=== PATIENT | male | born 1975 | race African-American/Black ===

== ENCOUNTER 2017-07-05 19:47 | Observation (INO) | payer OTHER ==
[~2017-07-05] VITALS: Ht 195.6 cm; Wt 90.2 kg
[2017-07-05 21:01] LABS: HEMATOCRIT 40.5 % (38.0-50.0); MCH 31.1 PG (29.0-34.0); MCHC 34.6 G/DL (30.0-36.0); PLATELET COUNT 184 K/uL (156-360); RBC DIS.WIDTH-CV 12.9 % (11.8-14.6); RBC DIS.WIDTH-SD 42.5 % (39-53)
[2017-07-05 21:11] LABS: CHLORIDE 104 mEq/L (99-109); POTASSIUM 3.6 mEq/L (3.7-5.4); SODIUM 140 mEq/L (136-147)
[2017-07-05 21:12] LABS: GLUCOSE 84 mg/dL (70-99)
[2017-07-05 21:17] LABS: GFR ESTIMATE (CALCULATED) > 59 mL/min/ (58.99-99999); UREA NITROGEN (BUN) 14 mg/dL (9-23)
[2017-07-05 21:32] LABS: TROP-I INTERPRETATION NEGATIVE; TROPONIN-I < 0.01 ng/mL (0.0-0.30)
[2017-07-05] MEDS ORDERED: BRILINTA PO (21:38)
[2017-07-05] MEDS ORDERED: ASPIR-LOW81 MG PO (21:39)
[2017-07-05] MEDS ORDERED: CHOLESTEROL TAB PO (21:40)
[2017-07-05] MEDS ORDERED: LISINOPRIL10 MG PO (23:53)
[2017-07-05] MEDS ORDERED: CARVEDILOL6.25 MG PO (23:53)
[2017-07-06 03:05] LABS: ALBUMIN 3.7 g/dL (3.2-4.8)
[2017-07-06 03:06] LABS: D-DIMER ELISA < 150.00 ng/mLDDU (<230)
[2017-07-06 03:08] LABS: TOTAL PROTEIN 6.9 g/dL (6.4-8.3)
[2017-07-06 03:10] LABS: TOTAL BILIRUBIN 0.4 mg/dL (0.0-1.0)
[2017-07-06 03:11] LABS: ALKALINE PHOSPHATASE 49 IU/L (3-129)
[2017-07-06 03:14] LABS: ALT (GPT) 35 IU/L (3-49); AST (GOT) 21 IU/L (2-34); DIRECT BILIRUBIN 0.2 mg/dL (0.0-0.3)
[2017-07-06 03:15] LABS: LIPASE 15 U/L (1.0-51.0)
[2017-07-06 03:16] LABS: TROP-I INTERPRETATION NEGATIVE; TROPONIN-I < 0.01 ng/mL (0.0-0.30)
[2017-07-06 03:53] LABS: HDL CHOLESTEROL 27 MG/DL (Desirable>=40); LDL CHOLESTEROL 139 mg/dL (Desirable<100); NON-HDL CHOLESTEROL 152 mg/dL (Desirable<160); TOTAL CHOLESTEROL 179 mg/dL (Desirable<200); TRIGLYCERIDES 65 MG/DL (Normal: <150)
[2017-07-06 09:58] LABS: TROP-I INTERPRETATION NEGATIVE; TROPONIN-I < 0.01 ng/mL (0.0-0.30)
[2017-07-06 12:01] VITALS: BP 164/102
[2017-07-06] MEDS ORDERED: ASPIR-LOW81 MG PO (15:19)
[2017-07-06] MEDS ORDERED: LISINOPRIL10 MG PO (15:19)
[2017-07-06] MEDS ORDERED: CARVEDILOL6.25 MG PO (15:20)
[2017-07-06] MEDS ORDERED: BRILINTA90 MG PO (15:29)
[2017-07-06 15:39] VITALS: BP 143/93
== END 2017-07-06 16:34 | disposition home or self-care (01) ==
LOC: EME 19:47 → EDOF 07-06 01:27 → ENRESERV 07-06 01:30 → 5WEST 07-06 11:36
PROVIDERS: Hospitalist
DX: R07.9 Chest pain, unspecified (principal); I10 Essential (primary) hypertension; I25.10 Atherosclerotic heart disease of native coronary artery without angina pectoris; Z95.5 Presence of coronary angioplasty implant and graft; I25.2 Old myocardial infarction; I42.9 Cardiomyopathy, unspecified; R51 Headache; E78.5 Hyperlipidemia, unspecified; B20 Human immunodeficiency virus [HIV] disease; F17.200 Nicotine dependence, unspecified, uncomplicated; Z91.19 Patient's noncompliance with other medical treatment and regimen; F12.90 Cannabis use, unspecified, uncomplicated; Z82.49 Family history of ischemic heart disease and other diseases of the circulatory system; Z79.82 Long term (current) use of aspirin; Z79.01 Long term (current) use of anticoagulants
CPT/HCPCS: 70450; 71046; 80048; 80061; 80076; 83690; 84484; 85027; 85379; 93005; 99281; 99285; G0378; J7030